=== PATIENT | female | born 1975 | race African-American/Black ===

== ENCOUNTER 2019-05-09 08:03 | Day surgery (SDC) | payer MEDICARE ==
[~2019-05-09 08:03] MED LIST: ADLT ASA LOW81 MG PO; ALBUTEROL SUL0.083 % IN; ALLERGY INJECTIONS; ASA; AZELAIC ACID EX; BACLOFEN10 MG PO; BAYER ASPIRIN325 MG PO; BUDESONID2 IN; BUT; CAFF; CALAN SR120 M1 PO; CALAN SR120 MG PO; CEPHALEXIN250 MG/51 OR; CEPHALEXIN500 MG PO; CIPROFLOXACN500 MG PO; CLARITIN10 M1 PO; CLINDAMYCIN11 EX; CLINDAMYCIN300 M1 PO; CYCLOBENZAPR5 MG OR; CYCLOBENZAPR5 MG PO; DEPO-PROVER150 MG/ML IJ; DOXYCYCL HYC100 MG PO; EFFEXOR XR75 MG OR; EFFEXOR75 MG PO; FERR SULFATE325 MG PO; FIORICET PO; FLUTICASONE50 MCG NAB; FOLIC ACID1 MG PO; GABAPENTIN300 M1 OR; GEODON80 MG; GEODON80 MG PO; HYDROCO/APAP1 T10 PO; HYDROCO/APAP1 TA1; HYDROMORPHON4 MG PO; KEFLEX750 M1 PO; KETOROLAC10 MG PO; LACTULOSE OR; LEXAPRO20 MG OR; LOSARTAN POT50 MG PO; LYRICA150 MG PO; MEDDOSEPAK PO; MEDROL4 M1 PO; MELOXICAM15 MG PO; MODAFINIL200 MG PO; MULTIVITAMI9 PO; MULTIVITAMIN PO; NAPROSYN500 MG OR; NAPROSYN500 MG PO; NORVASC PO; OMEPRAZOLE20 M1 PO; OPANA ER40 M1 PO; PRAVASTATIN10 MG PO; PRILOSEC20 MG PO; PROVIGIL200 MG OR; PROVIGIL200 MG PO; PULMICORT0.5MG/2ML IN; RETIN-A0.025 % EX; RITALIN20 MG OR; ROBAXIN-750750 MG PO; SINGULAIR10 MG PO; SYMBICORT1 AE1 IN; SYMBICORT1 AE1 INH; TRIAMCINOLON0.025 % EX; ULTRAM50 M1 PO; VENLAFAXINE HCL75 M1 PO; VENTOLIN HFA IN; VERAPAMIL120 M1 PO; VIACTIV MULT PO; VIACTIV PO; VOLTAREN - GENE75 MG PO; XARELTO10 MG PO; XYREM500 MG/ML OR; XYREM500 MG/ML PO; ZITHROMAX250 MG PO; [UNRECOGNIZED DRUG - CODE] EX; [UNRECOGNIZED DRUG - OTHER]; [UNRECOGNIZED DRUG - OTHER] EX
[2019-05-09] MEDS ORDERED: PERCOCET 5/325M1 TAB PO (10:28)
[2019-05-09 11:33] VITALS: BP 141/86
== END 2019-05-09 12:28 | disposition home or self-care (01) ==
LOC: ORM 08:03
PROVIDERS: ATTEND Surgery
PROC: 0FT44ZZ Resection of Gallbladder, Percutaneous Endoscopic Approach (ICD-10-PCS; principal; 2019-05-09)
DX: K80.10 Calculus of gallbladder with chronic cholecystitis without obstruction (principal); I10 Essential (primary) hypertension; I48.91 Unspecified atrial fibrillation
CPT/HCPCS: J2710

== ENCOUNTER 2019-09-24 16:51 | Emergency (ER) | payer OTHER ==
[~2019-09-24] VITALS: Ht 162.6 cm; Wt 75.0 kg
[~2019-09-24 16:51] MED LIST changes: +PERCOCET 5/325M1 TAB PO
[2019-09-24] MEDS ORDERED: TESSALON PERLE100 MG PO (18:34)
[2019-09-24] MEDS ORDERED: MEDDOSEPAK PO (18:34)
[2019-09-24] MEDS ORDERED: ZOFRAN4 MG/TAB PO (18:34)
[2019-09-24 18:45] VITALS: BP 129/74
[2019-09-24] MEDS ORDERED: MELOXICAM15 MG PO (18:46)
[2019-09-24] MEDS ORDERED: FLEXERIL5 M1 PO (18:46)
[2019-09-24] MEDS ORDERED: LORATADINE10 M4 PO (18:47)
[2019-09-24] MEDS ORDERED: FERR SULFATE325 MG PO (18:47)
[2019-09-24] MEDS ORDERED: [UNRECOGNIZED DRUG - OTHER] PO (18:48)
[2019-09-24] MEDS ORDERED: LOSARTAN POTASS25 MG PO (18:48)
== END 2019-09-24 18:45 | disposition home or self-care (01) ==
LOC: ED 16:51
DX: B34.9 Viral infection, unspecified (principal); I10 Essential (primary) hypertension; I48.91 Unspecified atrial fibrillation

== ENCOUNTER 2021-03-31 10:06 | Emergency (ER) | payer OTHER ==
[~2021-03-31] VITALS: Ht 162.6 cm; Wt 77.0 kg
[~2021-03-31 10:06] MED LIST changes: +FLEXERIL5 M1 PO; +LORATADINE10 M4 PO; +LOSARTAN POTASS25 MG PO; +TESSALON PERLE100 MG PO; +ZOFRAN4 MG/TAB PO; +[UNRECOGNIZED DRUG - OTHER] PO
[2021-03-31] MEDS ORDERED: TORADOL PO (12:21)
[2021-03-31 13:56] VITALS: BP 112/74
== END 2021-03-31 13:59 | disposition home or self-care (01) | DRG 563 ==
LOC: ED 10:06
PROC: 2W3DX1Z Immobilization of Left Lower Arm using Splint (ICD-10-PCS; principal; 2021-03-31)
DX: S66.912A Strain of unspecified muscle, fascia and tendon at wrist and hand level, left hand, initial encounter (principal); I10 Essential (primary) hypertension; I48.91 Unspecified atrial fibrillation; X58.XXXA Exposure to other specified factors, initial encounter

== ENCOUNTER 2023-06-26 14:24 | Emergency (ER) | payer OTHER ==
[~2023-06-26] VITALS: Ht 162.6 cm; Wt 68.0 kg
[~2023-06-26 14:24] MED LIST changes: +ARNUITY EL50 MCG/ACT; +COZAAR50 MG PO; +DEPO-PROVER150 MG/ML IM; +DICLOFENAC SODIUM1 %; +GUANFACINE1 MG PO; +HYDROCHLOROT25 MG PO; +HYDROMORPHON8 MG PO; +MONTELUKAST SOD10 MG PO; +NORVASC10 M1 PO; +PRAVASTATIN SOD20 MG PO; +TORADOL PO; +XARELTO20 MG PO
[2023-06-26] MEDS ORDERED: MEDDOSEPAK PO (18:30)
[2023-06-26] MEDS ORDERED: NAPROXEN500 MG PO (18:30)
[2023-06-26] MEDS ORDERED: METHOCARBAMOL500 MG PO (18:30)
[2023-06-26 18:38] VITALS: BP 126/70
== END 2023-06-26 18:44 | disposition home or self-care (01) | DRG 552 ==
LOC: ED 14:24
DX: M54.16 Radiculopathy, lumbar region (principal); I10 Essential (primary) hypertension; I48.91 Unspecified atrial fibrillation

== ENCOUNTER 2024-08-09 11:04 | Emergency (ER) | payer OTHER ==
[~2024-08-09] VITALS: Ht 162.6 cm; Wt 69.8 kg
[~2024-08-09 11:04] MED LIST changes: -ARNUITY EL50 MCG/ACT; +ARNUITY EL50 MCG/ACT PO; +ASPERCREME LIDOCA41; +BENZONATATE200 MG PO; +IMIQUIMOD5 % EX; +METHOCARBAMOL500 MG PO; +NAPROXEN500 MG PO; +OXYCODONE30 MG PO; +PREDNISONE50 MG PO; +RETIN-A0.1 % EX; +SPIRONOLACT50 MG PO; +VENTOLIN HFA108 MCG IN; +VITAMIN D22000 UNIT PO
[2024-08-09 11:22] VITALS: BP 140/80
[2024-08-09 11:31] VITALS: BP 114/79
[2024-08-09] MEDS ORDERED: MEDDOSEPAK PO (13:01)
[2024-08-09] MEDS ORDERED: BENZONATATE200 MG PO (13:01)
[2024-08-09] MEDS ORDERED: ZPAK PO (13:01)
[2024-08-09 13:22] VITALS: BP 114/79
== END 2024-08-09 13:20 | disposition home or self-care (01) | DRG 203 ==
LOC: ED 11:04
DX: J20.9 Acute bronchitis, unspecified (principal); J45.909 Unspecified asthma, uncomplicated; I10 Essential (primary) hypertension; G47.419 Narcolepsy without cataplexy; I48.91 Unspecified atrial fibrillation; Z20.822 Contact with and (suspected) exposure to COVID-19